=== PATIENT | female | born 1980 | race Caucasian/White ===

== ENCOUNTER 2023-12-18 06:18 | Day surgery (SDC) | payer BC, OTHER ==
[~2023-12-18 06:18] MED LIST: Sodium Chloride 0.9% 10 ML Syringe FLUSH PRN
[2023-12-18] MEDS ORDERED: Midazolam 1 MG/ML 2 ML SDV IV ONE (06:19)
[2023-12-18] MEDS ORDERED: Propofol 200 MG/20 ML SDV IV ONE (06:19)
[2023-12-18] MEDS ORDERED: fentaNYL 100 MCG/2 ML SDV IV ONE (06:19)
[2023-12-18] MEDS: Lactated Ringers 1,000 ML IV SCH (07:05)
[2023-12-18] MEDS: Simethicone Drops 40 MG/0.6 ML 30 ML Bottle PO ONE (07:32)
== END 2023-12-18 08:46 | disposition home or self-care (01) ==
LOC: FB.SDS 06:18
PROVIDERS: ATTEND Surgery
DX: Z12.11 Encounter for screening for malignant neoplasm of colon (principal); D12.6 Benign neoplasm of colon, unspecified; K57.30 Diverticulosis of large intestine without perforation or abscess without bleeding; E66.9 Obesity, unspecified; Z68.41 Body mass index [BMI] 40.0-44.9, adult
CPT/HCPCS: 00811; 88305; A9270-GY; J2250; J2704; J3010; J7120